=== PATIENT | male | born 1995 | race African-American/Black ===

== ENCOUNTER 2016-10-23 23:40 | Emergency (ER) | payer SELFPAY ==
[~2016-10-23] VITALS: Ht 170.2 cm; Wt 59.0 kg
[2016-10-24 00:24] VITALS: BP 128/71
[2016-10-24] MEDS ORDERED: CEPH500C PO (00:48)
[2016-10-24] MEDS ORDERED: HYDR-971 PO (00:48)
--- NOTE | 2016-10-24 00:49 | PHYS DOC ---
Past Medical History Past Medical History: No Pertinent History Past Surgical History: No Surgical History Additional Information: 0.5 PPD Alcohol Use: None Drug Use: None Adult General Chief Complaint Chief Complaint: LACERATION/AVULSION [facility] HPI Patient is a 21 year old male presents emergency room with complaint of pain, redness and swelling to his right middle finger the past 2 days. Patient states that he cut his right middle finger on a plate at work 4 days ago. 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 He states that he wrapped it back up and then later that same day he attempted to use superglue to seal the cut. He states that it opened up 2 days ago and began to drain. He denies fevers or chills. Patient reports his tetanus shot is been within the past 3 years. Review of Systems Review of Systems Constitutional: Denies fever or chills [] Eyes: Denies change in visual acuity, redness, or eye pain [] HENT: Denies nasal congestion or sore throat [] Respiratory: Denies cough or shortness of breath [] Cardiovascular: No additional information not addressed in HPI [] GI: Denies abdominal pain, nausea, vomiting, bloody stools or diarrhea [] : Denies dysuria or hematuria [] Musculoskeletal: Denies back pain or joint pain [] Integument: Denies rash or skin lesions [] Neurologic: Denies headache, focal weakness or sensory changes [] Endocrine: Denies polyuria or polydipsia [] Allergies Allergies Allergies Coded Allergies Type Severity Reaction Last Updated Verified Sulfa (Sulfonamide Antibiotics) Allergy Intermediate 10/24/16 Yes Physical Exam Physical Exam Constitutional: Well developed, well nourished, no acute distress, non-toxic appearance. HENT: Normocephalic, atraumatic, bilateral external ears normal, oropharynx moist, no oral exudates, nose normal. [] Eyes: PERRLA, EOMI, conjunctiva normal, no discharge. [] Neck: Normal range of motion, no tenderness, supple, no stridor. [] Cardiovascular:Heart rate regular rhythm, no murmur [] Lungs & Thorax: Bilateral breath sounds clear to auscultation [] Abdomen: Bowel sounds normal, soft, no tenderness, no masses, no pulsatile masses. [] Skin: Warm, dry, no erythema, no rash. [] Back: No tenderness, no CVA tenderness. [] Extremities: Right middle finger with a laceration overlying the PIPJ. There is wound margin separation and granulation of the tissue. There is a scant amount of mucopurulent drainage. There is some overlying erythema and swelling. There is no fusiform swelling. There is no ascending lymphangitis. Flexor and extensor mechanism is intact. Fingers neurovascularly intact with capillary refill less than 2 seconds. Neurologic: Alert and oriented X 3, normal motor function, normal sensory function, no focal deficits noted. [] Psychologic: Affect normal, judgement normal, mood normal. [] Current Patient Data Vital Signs Vital Signs Date Time Temp Pulse Resp B/P Pulse Ox O2 Delivery O2 Flow Rate FiO2 10/24/16 00:24 98.0 86 18 96 Room Air 98.0 EKG EKG [] Radiology/Procedures Radiology/Procedures [] Course & Med Decision Making Course & Med Decision Making Pertinent Labs and Imaging studies reviewed. (See chart for details) [] Dragon Disclaimer Dragon Disclaimer This electronic medical record was generated, in whole or in part, using a voice recognition dictation system. Departure Departure Impression: Primary Impression: Infected laceration Disposition: HOME, SELF-CARE Condition: GOOD Referrals: NO PCP (PCP) Patient Instructions: Cellulitis, [id number] Additional Instructions: 1. You have a superficial infection of the cut of your medical finger. It is very important that you complete the antibiotics as prescribed. 2. Review the discharge instructions provided for self-care and reasons to return to the emergency department. 3. Keep the finger bandaged, clean and dry at all times. Avoid soaking your hand in water of any kind. Washing your hands and showering is okay. Washing dishes is not. 4. It is important to have a wound check performed by Thursday. If there is evidence of worsening of the infection after being on antibiotics for 24 hours, then return to the emergency department for reevaluation. Scripts Hydrocodone/Apap 5-325 ([place] 5-325 Tablet)1 Each Tablet1 Tab PO PRN Q6HRS PRN PAIN #10 TAB Ref 0 Prov:FORD MILTON 10/24/16 Cephalexin 500 Mg Capsule1 Cap PO TID #30 CAP Prov:FORD MILTON 10/24/16 FORD MILTON Oct 24, 2016 00:49
[2016-10-24] MEDS ORDERED: CEPHALEXIN 250 MG CAPSULE PO ONE (01:15)
== END 2016-10-24 01:00 | disposition home or self-care (01) ==
LOC: ER 23:40
DX: S61.212A Laceration without foreign body of right middle finger without damage to nail, initial encounter (principal); L08.9 Local infection of the skin and subcutaneous tissue, unspecified; F17.210 Nicotine dependence, cigarettes, uncomplicated; Z88.2 Allergy status to sulfonamides; W26.8XXA Contact with other sharp object(s), not elsewhere classified, initial encounter; Y93.89 Activity, other specified; Y92.89 Other specified places as the place of occurrence of the external cause; Y99.8 Other external cause status
CPT/HCPCS: 99283